=== PATIENT | female | born 1975 ===

== ENCOUNTER 2020-10-11 13:21 | Outpatient (CLI) | payer OTHER ==
[2020-10-15] MEDS ORDERED: PRENATABS FA T1 EACH PO (13:31)
== END 2020-10-11 13:36 | disposition home or self-care (01) ==
LOC: SONOGRAMA 13:21
PROVIDERS: ATTEND Obstetrics & Gynecology Maternal & Fetal Medicine
DX: Z34.81 Encounter for supervision of other normal pregnancy, first trimester (principal)

== ENCOUNTER 2020-10-16 06:11 | Day surgery (SDC) | payer OTHER ==
[~2020-10-16 06:11] MED LIST: PRENATABS FA T1 EACH PO
== END 2020-10-16 14:35 | disposition home or self-care (01) ==
LOC: CIR.AMB 06:11
PROVIDERS: ATTEND Obstetrics & Gynecology Maternal & Fetal Medicine
DX: O02.1 Missed abortion (principal); Z20.822 Contact with and (suspected) exposure to COVID-19

== ENCOUNTER 2021-01-20 09:30 | Outpatient (CLI) | payer OTHER | END 2021-01-20 09:33 | disposition home or self-care (01) | LOC: MAMO-SONO 09:30 | PROVIDERS: ATTEND Obstetrics & Gynecology Maternal & Fetal Medicine | DX: N60.11 Diffuse cystic mastopathy of right breast (principal); N64.4 Mastodynia; Z12.31 Encounter for screening mammogram for malignant neoplasm of breast ==